=== PATIENT | female | born 1985 | race Caucasian/White ===

== ENCOUNTER 2018-05-04 09:10 | Outpatient (CLI) | payer BC ==
--- NOTE | 2018-05-04 09:35 | RAD ---
TWO VIEWS CHEST: Comparison: 11-02-13 History: Cough, fever. FINDINGS: Two views of the chest shows normal sized cardiomediastinal silhouette. There is opacity of the left thorax but on the lateral radiograph this appears to be at the inferior aspect of the left upper lobe , consistent with left upper lobe pneumonia. No pleural effusion is seen. IMPRESSION: Left upper lobe pneumonia. POS: [facility]
== END 2018-05-04 09:11 | disposition home or self-care (01) ==
LOC: SCSRAD 09:10
PROVIDERS: ATTEND Family Medicine
DX: R05 Cough (principal); R50.9 Fever, unspecified; J18.9 Pneumonia, unspecified organism
CPT/HCPCS: 71046

== ENCOUNTER 2018-07-06 13:45 | Outpatient (CLI) | payer BC ==
--- NOTE | 2018-07-06 14:08 | RAD ---
PA AND LATERAL CHEST: History: Cough. Comparison: 05-04-18 FINDINGS: Heart size and mediastinum are within normal limits. The lungs are clear of any infiltrative process. The opacity in the left base has almost completely resolved since the previous exam. IMPRESSION: No active intrathoracic disease. The parenchymal changes in the left base have essentially resolved. POS: [facility]
== END 2018-07-06 13:46 | disposition home or self-care (01) ==
LOC: SCSRAD 13:45
PROVIDERS: ATTEND Family Medicine
DX: R05 Cough (principal); J18.9 Pneumonia, unspecified organism
CPT/HCPCS: 71046